=== PATIENT | male | born 1975 | race Caucasian/White ===

== ENCOUNTER 2017-09-21 14:14 | Outpatient (CLI) | END 2017-09-21 14:15 | disposition home or self-care (01) | LOC: FCC-LAB 14:14 | PROVIDERS: ATTEND Family Medicine | DX: R42 Dizziness and giddiness (principal) | CPT/HCPCS: 93005; 93010 ==

== ENCOUNTER 2017-09-21 16:24 | Outpatient (CLI) | END 2017-09-21 16:25 | disposition home or self-care (01) | LOC: FCC-LAB 16:24 | PROVIDERS: ATTEND Family Medicine | DX: R42 Dizziness and giddiness (principal) | CPT/HCPCS: 36415; 80053; 83036; 84443; 85025 ==

== ENCOUNTER 2018-06-21 12:05 | Outpatient (CLI) | END 2018-06-21 12:06 | disposition home or self-care (01) | LOC: RHC-LAB 12:05 → FCC-LAB 12:06 | PROVIDERS: ATTEND Family Medicine | DX: F41.9 Anxiety disorder, unspecified (principal); Z51.81 Encounter for therapeutic drug level monitoring | CPT/HCPCS: 36415; 82542 ==